=== PATIENT | female | born 1930 | race African-American/Black ===

== ENCOUNTER 2017-05-23 07:57 | Emergency (ER) | payer OTHER, MEDICAID ==
[~2017-05-23] VITALS: Ht 165.1 cm; Wt 70.0 kg
[~2017-05-23 07:57] MED LIST: ACET-2178 PO; AMLO10TA80 PO; CLOP75TA15 PO; DOXA2TAB PO; FAMO40TA35 PO; FLUT16SP15 NS; METF500T4 PO; OLME1TAB8 PO; PRED5TAB48 PO
[2017-05-23] MEDS ORDERED: SODIUM CHLORIDE 0.9% 500 ML IV ONE (08:19)
[2017-05-23] MEDS ORDERED: ONDANSETRON HCL 4MG/2ML VIAL IV STA (08:19)
[2017-05-23] MEDS ORDERED: MORPHINE SULFATE 4 MG/ML CPJ (NOT FOR IM USE) IV STA (08:19)
[2017-05-23 08:52] LABS: BASOPHILS % 0.5 % (0.0-2.0); EOSINOPHILS % 0.1 % (0.0-5.0); HEMATOCRIT. 32.9 % (36.0-48.0); HEMOGLOBIN. 11.4 g/dL (12.0-16.0); LYMPHOCYTES % 28.1 % (20.0-50.0); MEAN CORPUSCULAR HEMOGLOBIN 27.7 pg (28.0-32.0); MEAN CORPUSCULAR VOLUME 79.8 fL (81.0-99.0); MEAN PLATELET VOLUME 7.9 fl (7.4-10.4); MONOCYTES % 11.7 % (2.0-8.0); NEUTROPHILS % 59.6 % (40.0-76.0); PLATELET 160 x1000/uL (130-400); RED BLOOD CELL COUNT 4.13 mill/uL (4.2-5.4); RED CELL DISTRIBUTION WIDTH 16.5 % (11.6-14.6)
[2017-05-23 09:01] LABS: INR 1.1; PARTIAL THROMBOPLASTIN TIME 24.5 sec (24.0-34.0)
[2017-05-23 09:09] LABS: CARBON DIOXIDE 28 mEq/L (21-32); CHLORIDE 102 mEq/L (98-107); TROPONIN I 0.03 ng/mL (0.00-0.04)
[2017-05-23] MEDS ORDERED: POTASSIUM CHLORIDE 20MEQ TABLET SR PO ONE (09:30)
[2017-05-23] MEDS ORDERED: ACETAMINOPHEN WITH CODEINE 300/30MG TABLET PO ONE (09:30)
[2017-05-23 09:41] VITALS: BP 135/61
[2017-05-23 10:43] LABS: CLARITY URINE CLEAR (CLEAR); COLOR URINE YELLOW (YELLOW); GLUCOSE URINE NEGATIVE (NEGATIVE); KETONES URINE NEGATIVE (NEGATIVE); LEUKOCYTE ESTERASE URINE NEGATIVE (NEGATIVE); NITRITE URINE NEGATIVE (NEGATIVE); OCCULT BLOOD URINE NEGATIVE (NEGATIVE); PROTEIN URINE NEGATIVE (NEGATIVE); SPECIFIC GRAVITY URINE 1.012 (1.005-1.030); UROBILINOGEN URINE 0.2 E.U./dL (0.2-1.0)
== END 2017-05-23 11:19 | disposition home or self-care (01) ==
LOC: ER 07:57
DX: M54.41 Lumbago with sciatica, right side (principal); I10 Essential (primary) hypertension; E87.6 Hypokalemia; N28.9 Disorder of kidney and ureter, unspecified; E11.9 Type 2 diabetes mellitus without complications; Z86.73 Personal history of transient ischemic attack (TIA), and cerebral infarction without residual deficits; Z79.01 Long term (current) use of anticoagulants
CPT/HCPCS: 36415; 72148; 80053; 81003; 83690; 84484; 85025; 85610; 85730; 87086; 93005; 96360; 99285; J7040

== ENCOUNTER 2019-01-23 11:17 | Inpatient (IN) | payer OTHER, MEDICAID ==
[~2019-01-23] VITALS: Ht 165.1 cm; Wt 64.0 kg
[~2019-01-23 11:17] MED LIST changes: -FAMO40TA35 PO; +FAMO40TA70 PO; -METF500T4 PO
[2019-01-23] MEDS ORDERED: HYDR200T35 PO (11:47)
[2019-01-23] MEDS ORDERED: DULO60CA63 PO (11:47)
[2019-01-23] MEDS ORDERED: SPIR25TA6 PO (11:47)
[2019-01-23] MEDS ORDERED: CARB-31 PO (11:47)
[2019-01-23] MEDS ORDERED: ASPIRIN 81MG TABLET PO ONE (12:00)
[2019-01-23 12:22] LABS: HEMATOCRIT. 27.8 % (36.0-48.0); HEMOGLOBIN. 9.3 g/dL (12.0-16.0); MEAN CORPUSCULAR HEMOGLOBIN 27.5 pg (28.0-32.0); MEAN CORPUSCULAR VOLUME 81.9 fL (81.0-99.0); MEAN PLATELET VOLUME 8.2 fl (7.4-10.4); PLATELET 198 x1000/uL (130-400); RED BLOOD CELL COUNT 3.39 mill/uL (4.2-5.4); RED CELL DISTRIBUTION WIDTH 17.9 % (11.6-14.6)
[2019-01-23 12:26] LABS: CHLORIDE 110 mEq/L (98-107)
[2019-01-23] MEDS ORDERED: FAMOTIDINE 20MG/2ML VIAL IV ONE (13:15)
[2019-01-23] MEDS ORDERED: NITROGLYCERIN 0.4MG TABLET SL SL ONE (13:15)
[2019-01-23 13:16] LABS: CLARITY URINE CLOUDY (CLEAR); COLOR URINE YELLOW (YELLOW); KETONES URINE NEGATIVE (NEGATIVE); LEUKOCYTE ESTERASE URINE TRACE (NEGATIVE); NITRITE URINE NEGATIVE (NEGATIVE); OCCULT BLOOD URINE NEGATIVE (NEGATIVE); PROTEIN URINE NEGATIVE (NEGATIVE); SPECIFIC GRAVITY URINE 1.015 (1.005-1.030); UROBILINOGEN URINE 0.2 E.U./dL (0.2-1.0)
[2019-01-23 14:20] LABS: PLATELET ESTIMATE NORMAL
[2019-01-23 22:30] VITALS: BP 176/62
[2019-01-24] VITALS: BP 165/59
[2019-01-24] MEDS ORDERED: AMLO5TAB88 PO (00:18)
[2019-01-24] MEDS ORDERED: MELA5TAB19 PO (00:18)
[2019-01-24] MEDS ORDERED: CARB-32 PO (00:24)
[2019-01-24] MEDS ORDERED: ACETAMINOPHEN 325MG TABLET PO PRN (00:45)
[2019-01-24] MEDS ORDERED: CLONIDINE 0.1MG TABLET PO PRN (00:45)
[2019-01-24] MEDS ORDERED: HYDROCODONE/ACETAMINOPHEN 5/325MG TABLET PO PRN (00:45)
[2019-01-24] MEDS ORDERED: LEVOFLOXACIN 250MG TABLET PO SCH ×2 (01:00→21:00)
[2019-01-24 01:30] LABS: CREATINE KINASE MB FRACTION 1.5 ng/mL (0.5-3.6)
[2019-01-24 04:00] VITALS: BP 134/77
[2019-01-24] MEDS: BLOOD SUGAR DIAGNOSTIC STRIP TEST SCH ×2 (06:00→17:01)
[2019-01-24 07:37] LABS: HEMATOCRIT. 25.5 % (36.0-48.0); HEMOGLOBIN. 8.8 g/dL (12.0-16.0); MEAN CORPUSCULAR HEMOGLOBIN 28.2 pg (28.0-32.0); MEAN CORPUSCULAR VOLUME 81.5 fL (81.0-99.0); MEAN PLATELET VOLUME 8.5 fl (7.4-10.4); PLATELET 185 x1000/uL (130-400); RED BLOOD CELL COUNT 3.13 mill/uL (4.2-5.4); RED CELL DISTRIBUTION WIDTH 17.8 % (11.6-14.6)
[2019-01-24 07:49] LABS: CHLORIDE 112 mEq/L (98-107)
[2019-01-24 07:57] LABS: LDL CHOLESTEROL 63 mg/dL (5-100)
[2019-01-24 07:59] LABS: CREATINE KINASE 40 IU/L (26-192); HDL CHOLESTEROL 51 mg/dL (40-59)
[2019-01-24 08:00] VITALS: BP 153/63
[2019-01-24 08:01] LABS: CREATINE KINASE MB FRACTION < 1.0 ng/mL (0.5-3.6)
[2019-01-24] MEDS: CARBIDOPA/LEVODOPA 10/100MG TABLET PO SCH ×4 (08:22→21:52)
[2019-01-24] MEDS: ENOXAPARIN 30MG/0.3ML SYR SUBCUT SCH (08:22)
[2019-01-24] MEDS: HYDROXYCHLOROQUINE SULFATE 200MG TABLET PO SCH ×2 (08:22→17:01)
[2019-01-24] MEDS: DULOXETINE HCL 60MG DR CAPSULE PO SCH (08:23)
[2019-01-24] MEDS: HYDROCHLOROTHIAZIDE 25MG TABLET PO SCH (08:23)
[2019-01-24] MEDS: LOSARTAN POTASSIUM 100 MG TABLET PO SCH (08:24)
[2019-01-24] MEDS: PREDNISONE 5MG TABLET PO SCH (08:24)
[2019-01-24] MEDS: SPIRONOLACTONE 25MG TABLET PO SCH (08:24)
[2019-01-24] MEDS: CLOPIDOGREL 75MG TABLET PO SCH (08:24)
[2019-01-24] MEDS: FAMOTIDINE 20MG TABLET PO SCH (08:24)
[2019-01-24] MEDS: AMLODIPINE 5MG TABLET PO SCH (08:25)
[2019-01-24] MEDS ORDERED: RIVA1PAT9 TP (08:31)
[2019-01-24] MEDS ORDERED: MEDICATION NOT ON FORMULARY EA (Spironolactone 25 MG) PO SCH (09:00)
[2019-01-24] MEDS ORDERED: LEVODOPA PO SCH ×2 (09:00→21:00)
[2019-01-24] MEDS ORDERED: [UNRECOGNIZED DRUG - OTHER] PO SCH (09:00)
[2019-01-24] MEDS ORDERED: MEDICATION NOT ON FORMULARY EA (Famotidine (Pepcid) 20 MG) PO SCH (09:00)
[2019-01-24] MEDS ORDERED: MEDICATION NOT ON FORMULARY EA (Prednisone 5 MG) PO SCH (09:00)
[2019-01-24] MEDS ORDERED: CARBIDOPA PO SCH ×2 (09:00→21:00)
[2019-01-24] MEDS ORDERED: MEDICATION NOT ON FORMULARY EA (Amlodipine Besylate 5 MG) PO SCH (09:00)
[2019-01-24] MEDS ORDERED: [UNRECOGNIZED DRUG - OTHER] PO SCH (09:00)
[2019-01-24] MEDS ORDERED: HYDROCHLOROTHIAZIDE PO SCH (09:00)
[2019-01-24] MEDS ORDERED: ENOXAPARIN 40MG/0.4ML SYR SUBCUT SCH (09:00)
[2019-01-24] MEDS ORDERED: CLOPIDOGREL BISULFATE PO SCH (09:00)
[2019-01-24] MEDS ORDERED: OLMESARTAN PO SCH (09:00)
[2019-01-24] MEDS ORDERED: MEDICATION NOT ON FORMULARY EA (Hydroxychloroquine Sulfate 200 MG) PO SCH (09:00)
[2019-01-24 11:28] LABS: BG BASE EXCESS -3.8 mmol/L (-2.0-2.0); BG CARBOXYHEMOGLOBIN 0.3 % (0.5-1.5); BG DEOXYHEMOGLOBIN 5.4 % (0.0-5.0); BG FRACTION INSPIRED OXYGEN 21; BG HCO3 ACT 20.9 mmol/L (22.0-26.0); BG METHEMOGLOBIN 0.2 % (0.0-1.5); BG OXYGEN SATURATION 94.6 % (92.0-98.5); BG OXYHEMOGLOBIN 94.1 % (94.0-97.0); BG PCO2 35.9 mmHg (35.0-45.0); BG PH 7.382 (7.350-7.450); BG SAMPLE SITE RIGHT BRACHIAL; BG TOTAL HEMOGLOBIN 9.4 g/dL (12.0-18.0); BG VENT MODE ROOM AIR
[2019-01-24] MEDS ORDERED: HYDRALAZINE 20MG/ML VIAL IV PRN (11:30)
[2019-01-24 11:55] LABS: INR 1.1; PROTHROMBIN TIME 11.5 sec (9.6-11.0)
[2019-01-24 12:00] VITALS: BP 142/56
[2019-01-24] MEDS: PIPERACILLIN/TAZ 2.25G PREMIX 50 ML IV SCH ×2 (14:06→18:22)
[2019-01-24 16:00] VITALS: BP 145/55
[2019-01-24 17:05] LABS: CREATINE KINASE 53 IU/L (26-192)
[2019-01-24 20:00] VITALS: BP 148/59
[2019-01-24 20:23] LABS: PLATELET ESTIMATE NORMAL
[2019-01-24] MEDS ORDERED: [UNRECOGNIZED DRUG - OTHER] PO SCH (21:00)
[2019-01-24] MEDS ORDERED: DOXAZOSIN MESYLATE 2MG TABLET PO SCH (21:00)
[2019-01-24] MEDS ORDERED: MELATONIN 5 MG PO SCH (21:00)
[2019-01-24] MEDS: IPRATROPIUM/ALBUTEROL 0.5-3(2.5)MG/3ML NEB HHN SCH (21:21)
[2019-01-25] VITALS (8 sets, daily range): BP systolic 117–161; BP diastolic 50–63
[2019-01-25] MEDS: PIPERACILLIN/TAZ 2.25G PREMIX 50 ML IV SCH ×4 (00:54→18:00)
[2019-01-25] MEDS: IPRATROPIUM/ALBUTEROL 0.5-3(2.5)MG/3ML NEB HHN SCH ×3 (02:17→14:13)
[2019-01-25 05:34] LABS: HEMATOCRIT. 26.2 % (36.0-48.0); MEAN CORPUSCULAR HEMOGLOBIN 27.5 pg (28.0-32.0); MEAN CORPUSCULAR VOLUME 80.2 fL (81.0-99.0); MEAN PLATELET VOLUME 8.3 fl (7.4-10.4); PLATELET 179 x1000/uL (130-400); RED BLOOD CELL COUNT 3.27 mill/uL (4.2-5.4); RED CELL DISTRIBUTION WIDTH 18.2 % (11.6-14.6)
[2019-01-25] MEDS: BLOOD SUGAR DIAGNOSTIC STRIP TEST SCH ×2 (05:56→17:00)
[2019-01-25] MEDS: CARBIDOPA/LEVODOPA 10/100MG TABLET PO SCH ×3 (09:02→17:39)
[2019-01-25] MEDS: LOSARTAN POTASSIUM 100 MG TABLET PO SCH (09:02)
[2019-01-25] MEDS: FAMOTIDINE 20MG TABLET PO SCH (09:03)
[2019-01-25] MEDS: DULOXETINE HCL 60MG DR CAPSULE PO SCH (09:03)
[2019-01-25] MEDS: CLOPIDOGREL 75MG TABLET PO SCH (09:03)
[2019-01-25] MEDS: ENOXAPARIN 30MG/0.3ML SYR SUBCUT SCH (09:03)
[2019-01-25] MEDS: SPIRONOLACTONE 25MG TABLET PO SCH (09:03)
[2019-01-25] MEDS: HYDROCHLOROTHIAZIDE 25MG TABLET PO SCH (09:03)
[2019-01-25] MEDS: AMLODIPINE 5MG TABLET PO SCH (09:03)
[2019-01-25] MEDS: PREDNISONE 5MG TABLET PO SCH (09:08)
[2019-01-25] MEDS: HYDROXYCHLOROQUINE SULFATE 200MG TABLET PO SCH ×2 (09:08→17:39)
[2019-01-25 12:23] LABS: NUCLEATED RED BLOOD CELLS 2 /100 WBC; PLATELET ESTIMATE NORMAL
== END 2019-01-25 19:00 | disposition home or self-care (01) | DRG 871 ==
LOC: ER 11:46 → EDBEDREQ 14:39 → 8WST 14:41 → ENRESERV 20:46
PROVIDERS: ADMIT Internal Medicine; ATTEND Internal Medicine
DX: A41.9 Sepsis, unspecified organism (principal); J18.1 Lobar pneumonia, unspecified organism; I50.43 Acute on chronic combined systolic (congestive) and diastolic (congestive) heart failure; N39.0 Urinary tract infection, site not specified; I13.0 Hypertensive heart and chronic kidney disease with heart failure and stage 1 through stage 4 chronic kidney disease, or unspecified chronic kidney disease; R07.89 Other chest pain; M19.90 Unspecified osteoarthritis, unspecified site; G20 Parkinson's disease; N18.9 Chronic kidney disease, unspecified; D64.9 Anemia, unspecified; E11.65 Type 2 diabetes mellitus with hyperglycemia; E11.22 Type 2 diabetes mellitus with diabetic chronic kidney disease; J40 Bronchitis, not specified as acute or chronic; Z86.73 Personal history of transient ischemic attack (TIA), and cerebral infarction without residual deficits; Z90.49 Acquired absence of other specified parts of digestive tract; Z90.710 Acquired absence of both cervix and uterus; Z79.84 Long term (current) use of oral hypoglycemic drugs; F02.80 Dementia in other diseases classified elsewhere, unspecified severity, without behavioral disturbance, psychotic disturbance, mood disturbance, and anxiety
CPT/HCPCS: 36415; 36600; 71045; 80048; 80061; 82375; 82550; 82553; 82805; 82962; 83036; 83880; 84484; 93005; 93306; 93970; 97162; 99285; J1650; J2543; J3490; J7050; J7512; J7620

== ENCOUNTER 2019-04-12 10:48 | Emergency (ER) | payer OTHER, MEDICAID ==
[~2019-04-12] VITALS: Ht 170.2 cm; Wt 65.0 kg
[~2019-04-12 10:48] MED LIST changes: -ACET-2178 PO; -AMLO10TA80 PO; +AMLO5TAB88 PO; +CARB-31 PO; +CARB-32 PO; +DULO60CA63 PO; -FLUT16SP15 NS; +MELA5TAB19 PO; +SPIR25TA6 PO
[2019-04-12] MEDS ORDERED: TRAMADOL 50MG TABLET PO ONE (11:00)
[2019-04-12 14:00] VITALS: BP 138/52
== END 2019-04-12 14:00 | disposition home or self-care (01) ==
LOC: ER 11:55
DX: M13.852 Other specified arthritis, left hip (principal); M25.552 Pain in left hip; E11.9 Type 2 diabetes mellitus without complications; I10 Essential (primary) hypertension; Z90.710 Acquired absence of both cervix and uterus; Z90.89 Acquired absence of other organs; Z79.899 Other long term (current) drug therapy
CPT/HCPCS: 73502; 99283